=== PATIENT | male | born 1965 | race Caucasian/White ===

== ENCOUNTER 2019-05-27 19:48 | Observation (INO) | payer OTHER ==
[2019-05-27 20:22] LABS: #Basophils 0.1 thou/uL (0.0-0.2); #Eosinphils 0.2 thou/uL (0.0-0.7); #Lymphocytes 2.3 thou/uL (1.20-3.40); #Monocytes 0.7 thou/uL (0.11-0.59); #Neutrophils 6.4 thou/uL (1.40-6.50); %Basophils 0.8 % (0.0-1.0); %Eosinophils 2.6 % (0.0-10.0); %Lymphocytes 23.8 % (21.0-51.0); %Monocytes 7.2 % (0.0-10.0); %Neutrophils 65.5 % (42.0-75.0); Hemoglobin 14.3 g/dL (14.0-18.0); Mean Corpuscular HGB CONC 34.2 g/dL (32.0-36.0); Mean Corpuscular Hemoglobin 29.3 pg (27.0-31.0); Mean Corpuscular Volume 85.7 fL (78.0-98.0); Mean Platelet Volume 9.4 fL (7.4-10.4); Platelet Count 217 thou/uL (130-400); RBC Distribution Width 12.2 % (11.5-14.5); Red Blood Cell (RBC) Count 4.88 mill/uL (4.70-6.10); White Blood Cell (WBC) Count 9.7 thou/uL (4.8-10.8)
--- NOTE | 2019-05-27 20:32 | RAD ---
RADIOGRAPH CHEST 1 VIEW: DATE: 05/27/2019 HISTORY: 54-year-old male with chest pain FINDINGS: There are no airspace densities, pulmonary edema, pneumothorax, or cardiomegaly. The lateral costophr enic angles are sharp. IMPRESSION: No acute cardiopulmonary findings.
[2019-05-27 20:36] LABS: ALT (SGPT) 17 U/L (8-55); AST (SGOT) 20 U/L (5-34); Albumin 4.5 g/dL (3.5-5.0); Alkaline Phosphatase 89 U/L (40-150); Anion Gap 16 mmol/L (10-20); BUN (Urea Nitrogen) 15 mg/dL (8.4-25.7); Bilirubin, Total 0.4 mg/dL (0.2-1.2); Calc. Creatinine Clearance 0 mL/min (70-130); Calcium 9.9 mg/dL (7.8-10.44); Carbon Dioxide 26 mmol/L (22-29); Chloride 103 mmol/L (98-107); Estimated GFR-MDRD 46; Globulin 3.3 g/dL (2.4-3.5); Glucose 127 mg/dL (70-105); Potassium 3.5 mmol/L (3.5-5.1); Protein, Total 7.8 g/dL (6.0-8.3); Sodium 141 mmol/L (136-145)
[2019-05-27 23:25] VITALS: BMI 30.2
[2019-05-28 00:06] LABS: Troponin I Less than 0.010 ng/mL (< 0.028)
[2019-05-28 02:38] LABS: Troponin I Less than 0.010 ng/mL (< 0.028)
[2019-05-28] MEDS ORDERED: Senokot S 8.6-50 MG TAB PO PRN (07:46)
[2019-05-28] MEDS ORDERED: Acetaminophen 325 MG TAB PO PRN (07:46)
[2019-05-28] MEDS ORDERED: HYDROcodone/Acetaminophen 5/325 mg Tablet PO PRN (07:46)
[2019-05-28] MEDS ORDERED: Sodium Chloride 0.9% 1,000 ML IV SCH (08:30)
[2019-05-28 08:37] LABS: Anion Gap 15 mmol/L (10-20); BUN (Urea Nitrogen) 20 mg/dL (8.4-25.7); Calc. Creatinine Clearance 86 mL/min (70-130); Calcium 9.2 mg/dL (7.8-10.44); Carbon Dioxide 23 mmol/L (22-29); Chloride 106 mmol/L (98-107); Estimated GFR-MDRD 55; Glucose 99 mg/dL (70-105); Potassium 3.8 mmol/L (3.5-5.1); Sodium 140 mmol/L (136-145)
[2019-05-28] MEDS ORDERED: Famotidine 20 MG TAB PO SCH (09:00)
[2019-05-28] MEDS ORDERED: Aspirin 325 mg Enteric Coated Tablet PO SCH (09:00)
--- NOTE | 2019-05-28 11:42 | NM ---
EXAM: NM Cardiac Stress W EF WF PROVIDED CLINICAL HISTORY: Chest pain. COMPARISON: None FINDINGS: This examination was performed as a pharmacologic myocardial stress test. There is no evidence of a r eversible defect seen between the stress and resting acquisitions. Quantitative analysis also shows no reversible defect. The gated images demonstrate normal ventricular wall motion and wall thickening . The calculated left ventricular ejection fraction is 75%. IMPRESSION: 1. Normal myocardial perfusion study without evidence of a reversible defect seen to suggest ischemia . 2. Normal LVEF of 75%.
[2019-05-28 11:44] VITALS: BP 141/81; TEMP 98
--- NOTE | 2019-05-28 14:01 | SS ---
DATE OF ADMISSION: 05/27/2019 DATE OF DISCHARGE: 05/28/2019 PRIMARY CARE PHYSICIAN: Dr. Meaghan Vargas. CHIEF COMPLAINT: Chest pain. HISTORY OF PRESENT ILLNESS: Mr. Wynn is a very pleasant 54-year-old man, who reported to the emergency room yesterday after he had gone to the urgent care for this chest pain. He reported on and off yesterday afternoon. He was given aspirin and nitroglycerin there and then noted his blood pressure was high in the 190 systolic, and after the nitroglycerin, it had come down to 150s with improved pain. The patient was sent over to the emergency room for further evaluation. When he first got over to the emergency room, his blood pressure was 151/93 and pulse was 67. Reported that his pain was improved. EKG in the emergency room showed normal sinus rhythm, beats per minute 64, T-waves inverted in leads III, left ventricular hypertrophy, left atrial enlargement. Troponins x3 have been undetectable. The patient was sent over to [facility] observation unit for further risk stratification. REVIEW OF SYSTEMS: The patient reports chest pain and left arm pressure. Denies any shortness of breath. Denied any illness or chills. Denies any chest pain on exertion. All other systems were reviewed and negative unless mentioned in the HPI. PAST MEDICAL HISTORY: None. PAST SURGICAL HISTORY: None. PSYCHIATRIC HISTORY: None. FAMILY HISTORY: The patient lives at home with his family. Negative for alcohol, drug, or smoking history. ALLERGIES: NONE. CURRENT MEDICATIONS: None. PHYSICAL EXAMINATION: VITAL SIGNS: Blood pressure 139/88, pulse is 80, respirations 18, temperature is 98.4, and pO2 sats are 97% on room air. CONSTITUTIONAL: Appears nontoxic. He is alert and oriented to person, place, and time. He is in no apparent distress. HEENT: Head is atraumatic and normocephalic. Eyes; pupils equally round and reactive to light. Extraocular muscles are intact. Mouth exam is normal. Mucous membranes are moist. NECK: Normal range of motion. Trachea is midline. RESPIRATORY/CHEST: Breath sounds are clear. No findings of any respiratory distress. CARDIOVASCULAR: Regular heart rate and rhythm. Heart sounds are normal. ABDOMEN: Nontender. Bowel sounds are heard. BACK: Normal range of motion. No tenderness. EXTREMITIES: Upper extremity, normal range of motion. Inspection normal. Radial pulses are equal. Lower extremity; normal inspection, normal range of motion. Pedal pulses are equal. There is no edema noted. NEUROLOGIC: The patient is oriented to person, place, and time. Speech is normal. SKIN: Warm and dry. Normal in color. ASSESSMENT AND PLAN: 1. Chest pain. The patient with T-wave inversions in lead III with negative troponins. We will order a stress test for today with nuclear medicine component. Lipitor done in February. We are going to add aspirin and statin to his medication regimen today. TSH will also be checked. 2. Deep venous thrombosis and gastrointestinal prophylaxis have been started. 3. Hospital course is dependent on clinical findings. Job ID: [id number]
[2019-05-28] MEDS ORDERED: ADENOSINE 60 MG/20 ML VIAL ONE (16:53)
[2019-05-28] MEDS ORDERED: Atorvastatin Calcium 40 MG TAB PO SCH (21:00)
== END 2019-05-28 13:30 | disposition home or self-care (01) ==
LOC: SCSER 19:48 → 2SW 22:17
PROVIDERS: ADMIT Internal Medicine; ATTEND Internal Medicine
DX: R07.89 Other chest pain (principal); I10 Essential (primary) hypertension; R79.89 Other specified abnormal findings of blood chemistry
CPT/HCPCS: 36415; 71045; 78452; 80048; 80053; 84443; 84484; 85025; 93005; 93017; 96360; A9500; G0378; J0153

== ENCOUNTER 2019-07-27 11:41 | Emergency (ER) | payer OTHER ==
[~2019-07-27 11:41] MED LIST: Iopamidol-370 76% 500 ML 1 ML ONE
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
[2019-07-27 14:38] LABS: #Basophils 0.1 thou/uL (0.0-0.2); #Eosinphils 0.1 thou/uL (0.0-0.7); #Lymphocytes 1.2 thou/uL (1.20-3.40); #Monocytes 0.9 thou/uL (0.11-0.59); #Neutrophils 15.3 thou/uL (1.40-6.50); %Basophils 0.4 % (0.0-1.0); %Eosinophils 0.4 % (0.0-10.0); %Lymphocytes 6.6 % (21.0-51.0); %Monocytes 5.3 % (0.0-10.0); %Neutrophils 87.3 % (42.0-75.0); Hemoglobin 14.3 g/dL (14.0-18.0); Mean Corpuscular HGB CONC 33.1 g/dL (32.0-36.0); Mean Corpuscular Hemoglobin 28.9 pg (27.0-31.0); Mean Corpuscular Volume 87.5 fL (78.0-98.0); Mean Platelet Volume 8.4 fL (7.4-10.4); Platelet Count 206 thou/uL (130-400); RBC Distribution Width 12.2 % (11.5-14.5); Red Blood Cell (RBC) Count 4.93 mill/uL (4.70-6.10); White Blood Cell (WBC) Count 17.5 thou/uL (4.8-10.8)
[2019-07-27 14:59] LABS: ALT (SGPT) 19 U/L (8-55); AST (SGOT) 31 U/L (5-34); Albumin 4.6 g/dL (3.5-5.0); Alcohol Less than 10 mg/dL (Less than 10); Alkaline Phosphatase 113 U/L (40-110); Anion Gap 16 mmol/L (10-20); BUN (Urea Nitrogen) 16 mg/dL (8.4-25.7); Bilirubin, Total 0.4 mg/dL (0.2-1.2); Calc. Creatinine Clearance 0 mL/min (70-130); Calcium 9.5 mg/dL (7.8-10.44); Carbon Dioxide 24 mmol/L (22-29); Chloride 105 mmol/L (98-107); Estimated GFR-MDRD 71; Globulin 2.9 g/dL (2.4-3.5); Glucose 110 mg/dL (70-105); Phosphorus 2.6 mg/dL (2.3-4.7); Protein, Total 7.5 g/dL (6.0-8.3); Sodium 141 mmol/L (136-145)
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
== END 2019-07-27 16:35 | disposition home or self-care (01) ==
LOC: ERS 11:41
DX: S06.0X9A Concussion with loss of consciousness of unspecified duration, initial encounter (principal); S42.025A Nondisplaced fracture of shaft of left clavicle, initial encounter for closed fracture; S22.32XA Fracture of one rib, left side, initial encounter for closed fracture; S42.102A Fracture of unspecified part of scapula, left shoulder, initial encounter for closed fracture; S80.12XA Contusion of left lower leg, initial encounter; V89.2XXA Person injured in unspecified motor-vehicle accident, traffic, initial encounter
CPT/HCPCS: 36415; 70450; 71260; 80053; 80307; 83735; 84100; 85025; Q9967